=== PATIENT | male | born 1960 | race Caucasian/White ===

== ENCOUNTER 2019-10-18 13:28 | Emergency (ER) | payer MEDICARE, SELFPAY ==
[2019-10-18] VITALS (17 sets, daily range): BP systolic 150–161; BP diastolic 60–97; PULSE 96–107; RESP 15–24; TEMP 36.3; O2SAT 90–100
--- NOTE | ~2019-10-18 | XR_ITS ---
EXAMINATION:XR_[id number]_CR DATE: 10/18/2019 14:02 INDICATION: Neck pain post fall TECHNIQUE: AP, lateral, lateral swimmers and odontoid views of the cervical spine are provided. COMPARISON: Cervical spine CT dated 04/20/2015 FINDINGS: Alignment is normal. Odontoid is intact. Normal atlantoaxial interval with moderate atlantoaxial ost eoarthritis. Vertebral body and disc heights are normal. Multilevel mild to moderate right-sided and moderate to severe left-sided cervical facet osteoarthritis. There is also multilevel bilateral mild to moderate uncovertebral osteoarthritis most prominent on the left at C3-C4. Prevertebral soft tissu es are normal. Postoperative change of prior distal right clavicle resection with suture anchors at t he coracoid likely for coracoacromial ligament repair. Median sternotomy wires and mediastinal surgic al clips are seen, likely from prior coronary artery bypass grafting. Surgical clips and stent in the right neck, the latter likely at the right carotid bulb. IMPRESSION: 1. Cervical spondylosis most notable for multilevel mild to moderate right-sided and moderate to travis re left-sided facet osteoarthritis. Reviewed, dictated and finalized at location A. PICKER IMPRESSION: 1. Cervical spondylosis most notable for multilevel mild to moderate right-side d and moderate to severe left-sided facet osteoarthritis.
--- NOTE | ~2019-10-18 | XR_ITS ---
EXAMINATION: XR hip RT 2V w AP pelvis DATE: 10/18/2019 14:02 INDICATION: Right hip pain. Fall. TECHNIQUE: An anteroposterior view of the pelvis and 2 views of right hip were obtained. COMPARISON: None. FINDINGS: There is a comminuted intertrochanteric fracture of proximal right femur. The main distal f racture fragment demonstrates impaction, 5 mm lateral displacement, and 10 degrees varus attenuation. There is mild osteoarthritis of the hips. There are changes of posterior fusion procedure at L5-S1. There is mild lumbar spondylosis. IMPRESSION: 1. Comminuted intertrochanteric fracture of proximal right femur. 2. Mild osteoarthritis of the hips. Reviewed, dictated and finalized at location B. HOLDER
--- NOTE | 2019-10-18 13:31 | ED.FALL ---
HPI - Fall General Chief Complaint: Fall Stated Complaint: fall; hip deform Source: patient and RN notes reviewed Mode of arrival: EMS Limitations: no limitations History of Present Illness HPI Narrative: A 58 y/o male presents to the ED via EMS after having a ground level fall at 3 AM this morning. He states that he was walking in his house when got dizzy and fell on hard tile floor. He reports that he landed on his rt hip, causing immediate sharp 10/10 pain and that her was unable to get up. He notes that it took him 9 hours to crawl to a phone to call EMS to be brought here. He also notes some mild neck pain and that his hip pain radiates down his RLE. He denies anything alleviating his pain. He also denies any HI, LOC, BAH, CP, ABD pain, N/V/D, or any other medical issues at this time. complaint: fall Onset (ago): hour(s) (10) Fall from: standing Place fall occurred: home Loss of consciousness: none Prolonged down time: yes and hour(s) (9) Symptoms prior to fall: dizziness Location of injury: other (rt hip) Severity scale (1-10): 10 Quality: sharp Associated symptoms (after fall): neck pain (mild) and other (RLE pain radiated from hip pain, dizziness (resolved)) Related Data Home Medications Medication Instructions Recorded Confirmed tizanidine 4 mg PO BID PRN 10/18/19 Allergies Allergy/AdvReac Type Severity Reaction Status Date / Time ketorolac Allergy Mild Itching Verified 07/22/18 09:59 vancomycin Allergy Unknown Verified 10/18/19 13:44 Review of Systems Review of Systems: All systems reviewed & are unremarkable except as noted in HPI and below Constitutional: Constitutional: Denies chills, Denies fever(s), Denies headache(s) and Denies weakness Eyes: Eyes: Denies blurry vision ENT: Denies headache(s) and Denies neck pain Cardiovascular: Cardiovascular: Denies chest pain and Denies dyspnea Respiratory: Respiratory: Denies cough and Denies dyspnea Gastrointestinal: Gastrointestinal: Denies abdominal pain, Denies diarrhea, Denies nausea and Denies vomiting Genitourinary: Genitourinary: Denies hematuria and Denies dysuria Musculoskeletal: Musculoskeletal: Denies back pain, Reports neck pain (mild) and Reports other (rt hip pain that radiates down his RLE) Neurologic: Reports dizziness (resolved), Denies headache(s) and Denies weakness PMF Past Medical History Medical History (Updated 10/18/19 @ 19:08 by Marika Rome MD) Anxiety (Acute) Arthritis (Acute) Bronchitis (Acute) CAD (coronary artery disease) (Acute) CHF (congestive heart failure) (Acute) COPD (chronic obstructive pulmonary disease) (Acute) Depression (Acute) DM (diabetes mellitus) (Acute) History of angina (Acute) History of heart attack (Acute) Hypertension (Acute) Hypothyroid (Acute) Peripheral neuropathy (Acute) Pneumonia (Acute) TIA (transient ischemic attack) (Acute) Surgical History Surgical History (Updated 10/18/19 @ 14:08 by Dwayne Hdz) History of tonsillectomy (Acute) Hx of CABG (Acute) Hx of cardiac cath (Acute) with stent placement Hx of spinal fusion (Acute) Comments PMHx: esophageal tear d/t severe vomiting, lt arm fx, and rt collar bone fx. PSHx: rt shoulder and esophageal repair. PCP: Dr. Dean. Exam Const: General: no acute distress and well developed Orientation/consciousness: oriented to person, oriented to place, oriented to time and oriented x3 HENMT: Head: normocephalic Ears: external ears normal General nose exam: external nose normal Other: C-collar in place. Eyes: General: appearance normal, both eyes and all related structures Conjunctivae: conjunctivae normal Neck: Neck: normal visual inspection and full ROM Chest: Chest palpation & inspection: normal inspection of the chest and no tenderness Resp: Effort & Inspection: normal respiratory effort Auscultation: clear to auscultation bilaterally Cardio: Rate: regular rate Rhythm: regular rhythm GI: Palpation (GI): No abdomi
[2019-10-18 13:50] LABS: Basophils Percent Auto 0.2 % (0.2-1.2); Eosinophils Percent Auto 0.2 % (0-4.4); Hematocrit 37.1 % (42.0-52.0); Hemoglobin 12.1 g/dL (14.0-18.0); Immature Granulocyte Absolute 0.06 K/mm3 (0.00-0.031); Immature Granulocyte Percent A 0.5 % (0-0.5); Lymphocytes Absolute Auto 0.68 K/mm3 (0.9-3.2); Lymphocytes Percent Auto 5.4 % (18.3-44.2); Mean Corpuscular HGB Conc 32.6 g/dl (32-36); Mean Corpuscular Hemoglobin 28.6 pg (26-34); Mean Corpuscular Volume 87.7 fl (80-100); Mean Platelet Volume 9.2 fl (7.4-10.4); Monocytes Absolute Auto 0.7 K/mm3 (0.1-0.6); Monocytes Percent Auto 5.1 % (2.6-8.5); Neutrophils Absolute Auto 11.3 K/mm3 (1.3-6.7); Neutrophils Percent Auto 88.6 % (45.5-73.1); Platelet Count Result 400 k/mm3 (150-375); Red Blood Count 4.23 M/mm3 (4.6-6.20); Red Cell Distribution Width 14.6 % (11.5-14.5); White Blood Count 12.7 K/mm3 (4.5-10.0)
--- NOTE | 2019-10-18 13:57 | ECG_ITS ---
Measurements Intervals [place] Rate: 103 P: 76 SC: 181 QRS: 56 QRSD: 112 T: 59 QT: 352 QTc: 461 Interpretive Statements SINUS TACHYCARDIA INTRAVENTRICULAR CONDUCTION DELAY ST-T WAVE ABNORMALITY IN ANTEROLATERAL LEADS- CONSIDER ISCHEMIA BASELINE ARTIFACT- I, II, III, AVR, AVL, AVF, V1-V2 ABNORMAL ECG Electronically Signed On 10-18-2019 13:59:43 [employer] by Preston Jennings D.O.
[2019-10-18 14:00] LABS: INR 1.1; Prothrombin Time 13.5 Seconds (11.1-14.7)
[2019-10-18 14:01] LABS: Alanine Aminotransferase 23 U/L (4-50); Albumin Level 4.2 g/dL (3.5-5.1); Alkaline Phosphatase 116 U/L (38-126); Aspartate Amino Transferase 39 U/L (17-59); Bilirubin,Total 0.6 mg/dL (0.2-1.3); Blood Urea Nitrogen 20 mg/dL (9-20); Calcium 9.5 mg/dL (8.4-10.2); Carbon Dioxide 32 mmol/L (22-30); Chloride 86 mmol/L (98-107); Estimated CRCL calculation 48 ml/min; Estimated Glomerular Filt Rate 45; Glucose 173 mg/dL (75-110); Partial Thromboplastin Time 29.5 SECONDS (22.3-36.8); Sodium 129 mmol/L (137-145)
[2019-10-18 14:04] LABS: Creatine Kinase 160 U/L (55-170)
[2019-10-18] MEDS: SODIUM CHLORIDE 0.9% IV 1,000 ML 999 ML IV CONT (14:33)
--- NOTE | 2019-10-18 15:50 | PC.NURSE ---
Verbal order per [facility] for 50 mcg IVP fentanyl for transfer to [facility].
== END 2019-10-18 16:00 | disposition short-term general hospital (02) ==
PROVIDERS: Emergency Provider Emergency Medicine; PCP Family Medicine
DX: S72.141A Displaced intertrochanteric fracture of right femur, initial encounter for closed fracture (principal); R00.0 Tachycardia, unspecified; M47.812 Spondylosis without myelopathy or radiculopathy, cervical region; F41.9 Anxiety disorder, unspecified; M19.90 Unspecified osteoarthritis, unspecified site; I25.10 Atherosclerotic heart disease of native coronary artery without angina pectoris; I11.0 Hypertensive heart disease with heart failure; I50.9 Heart failure, unspecified; J44.9 Chronic obstructive pulmonary disease, unspecified; E11.9 Type 2 diabetes mellitus without complications; E03.9 Hypothyroidism, unspecified; W01.0XXA Fall on same level from slipping, tripping and stumbling without subsequent striking against object, initial encounter
CPT/HCPCS: 36415; 72040; 73502; 73521; 80053; 82550; 85025; 85610; 85730; 93005; 96361; 96374; 99285; J3010; J7030

== ENCOUNTER 2020-01-08 20:35 | Emergency (ER) | payer SELFPAY ==
--- NOTE | ~2020-01-08 | XR_ITS ---
EXAMINATION: XR shoulder RT min 2V INDICATION: Right shoulder pain TECHNIQUE: Four views of the right shoulder are submitted. COMPARISON: 01/31/2013 FINDINGS: There is mild cranial subluxation of the lateral head with respect to the glenoid. Suture a nchors are noted in the scapula and humeral head there is chronic irregularity of the distal clavicle which may be surgical or posttraumatic in nature. No acute fracture is identified. There is soft tis jovan swelling near the scapula. IMPRESSION: No acute osseous abnormality. Reviewed, dictated and finalized at location A. BOTOMIST MEDICAL LAB ASSISTANT
--- NOTE | ~2020-01-08 | CT_ITS ---
EXAMINATION: CT brain wo con INDICATION: Head injury COMPARISON: None TECHNIQUE: Standard unenhanced head CT. The dose-length product (DLP) was 605.33 mGy-cm. The mA was a djusted according to patient size. Iterative reconstruction technique was employed. FINDINGS: Motion artifact slightly limits the examination. A right hematoma is present. There is no i ntracranial hemorrhage, acute infarction, or abnormal mass lesion. The ventricles are normal. There i s no abnormal mass effect or midline shift. The aguilera-white matter differentiation is normal. The basa l cisterns are patent. Intracranial calcified cerebral atherosclerosis is noted. The orbits are kemal l. The paranasal sinuses, mastoids and calvarium are normal. IMPRESSION: 1. Right frontal scalp hematoma without acute intracranial abnormality. Reviewed, dictated and finalized at location A. TING VEHICLE SYSTEMS MAINTAINER
--- NOTE | ~2020-01-08 | XR_ITS ---
EXAMINATION: XR thoracic spine 3V DATE: 01/08/2020 21:47 INDICATION: Upper back pain TECHNIQUE: AP, lateral and lateral swimmer's views of the thoracic spine were obtained. COMPARISON: 04/20/2015 FINDINGS: There is no fracture, dislocation, or subluxation. Chronic moderate loss of intervertebral disc space height is seen in the lower thoracic spine. The vertebral body heights are normal. Small d egenerative osteophytes project from the anterior endplates of multiple vertebral bodies. There are c hanges of cardiac surgery. IMPRESSION: 1. Moderate thoracic spondylosis without acute findings or significant interval change. Reviewed, dictated and finalized at location A. ROBE SPECIALIST
--- NOTE | ~2020-01-08 | CT_ITS ---
EXAMINATION: CT cervical spine wo con DATE: 01/08/2020 21:46 INDICATION: Generalized neck pain TECHNIQUE: Computed tomography (CT) of the cervical spine was performed without intravenous contrast. The dose-length product (DLP) was 350.51 mGy-cm. Automated exposure control and iterative reconstruc tion technique were employed. COMPARISON: 04/20/2015 FINDINGS: There is no fracture, dislocation, or subluxation. The odontoid is intact. There is severe multilevel facet and uncovertebral joint osteoarthritis. The prevertebral soft tissues are normal. Sm all degenerative osteophytes project from the anterior endplates of multiple vertebral bodies. IMPRESSION: 1. Mild cervical spondylosis without acute findings. Reviewed, dictated and finalized at location A. GATION PARTNER
--- NOTE | 2020-01-08 20:44 | ED.HEATRA ---
HPI - Head Injury General Chief complaint: Fall Stated complaint: cut head open Time Seen by Provider: 01/08/20 20:44 Source: patient Mode of arrival: ambulatory Limitations: no limitations History of Present Illness HPI Narrative: 59-year-old man who is 1 month status post right hip ORIF brought to the emergency department today by his friend after he tripped outdoors going down some stairs and struck his head on some rocks. He denies prodromal symptoms such as chest pain, shortness of breath, nausea, lightheadedness, dizziness or weakness. He did not lose consciousness. He had been at bar and states that he had had a couple of drinks. He denies taking any oral pain medications however records show that he was recently prescribed oxycodone for pain. He also complains of neck, mid back and right shoulder pain MD Complaint: head injury Onset (ago): hour(s) (1) Mechanism of Injury: fall Place: outdoors Loss of Consciousness: no Location of injury: frontal Severity: moderate Quality: sharp and dull Radiation: none Other Injuries: upper extremity Context: other anticoagulant use (Plavix) Associated symptoms: neck pain Related Data Home Medications Medication Instructions Recorded Confirmed amitriptyline 25 mg PO HS 01/08/20 01/08/20 amoxicillin 500 mg PO TID 01/08/20 01/08/20 atorvastatin 80 mg PO HS 01/08/20 01/08/20 carvedilol 6.25 mg PO BID 01/08/20 01/08/20 clopidogrel 75 mg PO DAILY 01/08/20 01/08/20 fentanyl 50 mcg TRANSDERMAL Q3-4D 01/08/20 01/08/20 furosemide 40 mg PO DAILY 01/08/20 01/08/20 gabapentin 600 mg PO TID 01/08/20 01/08/20 insulin aspart U-100 [Novolog 0 sliding scale dose SUBCUT TID 01/08/20 01/08/20 U-100 Insulin aspart] isosorbide mononitrate 30 mg PO DAILY 01/08/20 01/08/20 levothyroxine 137 mcg PO DAILY 01/08/20 01/08/20 lisinopril 5 mg PO DAILY 01/08/20 01/08/20 montelukast 10 mg PO DAILY 01/08/20 01/08/20 nitroglycerin 0.4 mg SUBLINGUAL PRN 01/08/20 01/08/20 oxycodone-acetaminophen 1 tablet PO PRN 01/08/20 01/08/20 pantoprazole 40 mg PO BID 01/08/20 01/08/20 potassium chloride 10 meq PO DAILY 01/08/20 01/08/20 ranitidine HCl 150 mg PO DAILY 01/08/20 01/08/20 sertraline 100 mg PO DAILY 01/08/20 01/08/20 sulfamethoxazole-trimethoprim 1 tablet PO BID 01/08/20 01/08/20 tamsulosin 0.4 mg PO DAILY 01/08/20 01/08/20 tizanidine 4 mg PO BID 01/08/20 01/08/20 trazodone 50 mg PO HS 01/08/20 01/08/20 triamcinolone acetonide 1 applic TOPICAL BID 01/08/20 01/08/20 zolpidem 5 mg PO HS 01/08/20 01/08/20 Allergies Allergy/AdvReac Type Severity Reaction Status Date / Time ketorolac Allergy Mild Itching Verified 07/22/18 09:59 vancomycin Allergy Unknown Verified 10/18/19 13:44 Review of Systems Constitutional: Constitutional: Denies chills, Denies fatigue, Denies fever(s) and Denies weakness Eyes: Eyes: Denies change in vision and Denies photophobia ENT: Denies dysphagia, Denies nasal congestion and Denies sore throat Cardiovascular: Cardiovascular: Denies chest pain, Denies rapid heart rate and Denies radiating jaw, neck or arm pain Respiratory: Respiratory: Denies chest congestion, Denies cough, Denies dyspnea and Denies wheezing Gastrointestinal: Gastrointestinal: Denies abdominal pain, Denies nausea and Denies vomiting Genitourinary: Genitourinary: Denies hematuria, Denies oliguria and Denies dysuria Musculoskeletal: Musculoskeletal: Reports back pain, Reports arthralgias, Denies joint swelling and Denies muscle cramps Integumentary/Breasts: Skin/Breast: Denies pruritus, Denies erythema and Denies rash Neurologic: Denies vertigo, Denies dizziness and Denies syncope Psychiatric: Psychiatric: Denies anxiety and Denies depression Endocrine: Endocrine: Denies fatigue, Denies polydipsia and Denies polyuria Hematologic/Lymphatic: Hematologic/Lymphatic: Denies easy bleeding and Denies easy bruising Allergic/Immunologic: Allergic/Immunologic: Denies tongue swelling and Denies wheezing [facility]
[2020-01-08 21:00] VITALS: BP 129/63; PULSE 93; RESP 15; TEMP 36.5; O2SAT 100
[2020-01-08] MEDS: ACETAMINOPHEN 500 MG TABLET 1000 MG PO (21:38)
[2020-01-08] MEDS: LIDO 1%/EPINEPHRINE 1:100,000 20 ML VIAL 10 ML INFILTRATE (21:38)
[2020-01-08 22:37] VITALS: RESP 13; O2SAT 100
== END 2020-01-08 22:15 | disposition home or self-care (01) ==
PROVIDERS: Emergency Provider Emergency Medicine; PCP Family Medicine
DX: S09.90XA Unspecified injury of head, initial encounter (principal); S01.01XA Laceration without foreign body of scalp, initial encounter; S40.011A Contusion of right shoulder, initial encounter; S20.229A Contusion of unspecified back wall of thorax, initial encounter; W19.XXXA Unspecified fall, initial encounter
CPT/HCPCS: 12002; 70450; 72072; 72125; 73030; 99283; 99284